=== PATIENT | male | born 1985 | race Caucasian/White ===

== ENCOUNTER 2020-03-07 11:16 | Emergency (ER) | payer SELFPAY ==
[~2020-03-07] VITALS: Ht 172.7 cm; Wt 70.9 kg
[2020-03-07 11:29] VITALS: BP 138/77
[2020-03-07] MEDS ORDERED: CIPR2.5D OS (12:33)
--- NOTE | 2020-03-07 12:33 | PHYS DOC ---
Past Medical History Past Medical History: No Pertinent History Past Surgical History: No Surgical History Smoking Status: Former Smoker Alcohol Use: None General Adult EDM: Chief Complaint: EYE PROBLEMS HPI: HPI: Patient is a 34 year old male who presents to the emergency department with complaints of left eye redness, pain, and tearing for the last 2 days. He states that he normally wears contact lenses but he is not been wearing them since the onset of the symptoms. He reports that his vision is blurry but denies any fever, headache, injury, neck pain, loss of vision, or floaters. He denies any recent skiing, welding, or photosensitivity. He currently rates the pain 8 out of 10 on the pain scale and describes it as a constant burning sensation. Review of Systems: Review of Systems: Complete review of systems is negative unless otherwise documented in the HPI Heart Score: Risk Factors: Risk Factors: DM, Current or recent (<one month) smoker, HTN, HLP, family history of CAD, obesity. Risk Scores: Score 0 - 3: 2.5% MACE over next 6 weeks - Discharge Home Score 4 - 6: 20.3% MACE over next 6 weeks - Admit for Clinical Observation Score 7 - 10: 72.7% MACE over next 6 weeks - Early Invasive Strategies Allergies: Allergies: Allergies Coded Allergies Type Severity Reaction Last Updated Verified No Known Drug Allergies 03/07/20 No Physical Exam: PE: Constitutional: Well developed, well nourished, no acute distress, non-toxic appearance. [] HENT: Normocephalic, atraumatic, bilateral external ears normal, nose normal. [] Eyes: PERRLA, EOMI, right eye conjunctiva normal, no discharge; left eye diffuse conjunctival erythema with watery discharge consistent with conjunctivitis, no visible foreign body [] Neck: Normal range of motion, no stridor. [] Cardiovascular:Heart rate regular rhythm Lungs & Thorax: Respirations even and unlabored, no retractions, no respiratory distress Skin: Warm, dry, no erythema, no rash. [] Extremities: No cyanosis, ROM intact, no edema. [] Neurologic: Alert and oriented X 3, no focal deficits noted. [] Psychologic: Affect normal, judgement normal, mood normal. [] Current Patient Data: Vital Signs: Vital Signs Date Time Temp Pulse Resp B/P (MAP) Pulse Ox O2 Delivery O2 Flow Rate FiO2 03/07/20 11:29 97.9 90 17 138/77 (97) 99 Room Air 97.9 EKG: EKG: [] Radiology/Procedures: Radiology/Procedures: [] Course & Med Decision Making: Course & Med Decision Making Pertinent Labs and Imaging studies reviewed. (See chart for details) [] Dragon Disclaimer: Dragon Disclaimer: This electronic medical record was generated, in whole or in part, using a voice recognition dictation system. Departure Departure Impression: Primary Impression: Acute conjunctivitis, left eye Qualified Codes: H10.32 - Unspecified acute conjunctivitis, left eye Additional Impression: Wears contact lenses Disposition: HOME, SELF-CARE Condition: STABLE Referrals: NO PCP (PCP) CUBA DE LUNA MD Patient Instructions: Conjunctivitis (Viral and Bacterial) Additional Instructions: Fill the prescription(s) and use as directed. Apply warm, moist washcloths to eyes needed for comfort. Recommend use of baby shampoo to wash eyelids. Do not wear your contacts until symptoms have completely resolved. Follow-up with your Dr. De Luna's office for reevaluation in 1-2 days. Return to the emergency room if your symptoms worsen. Scripts Ciprofloxacin Hcl (CIPROFLOXACIN HCL) 2.5 Ml Drops 1 DROP OS QID for 7 Days, #5 ML 0 Refills Prov: ALTHEA MARTINEZ APRN 03/07/20 Justicifation of Admission Dx: Justifications for Admission: Justification of Admission Dx: N/A ALTHEA MARTINEZ APRN Mar 07, 2020 12:33
== END 2020-03-07 12:38 | disposition home or self-care (01) ==
LOC: ER 11:16
DX: H10.32 Unspecified acute conjunctivitis, left eye (principal); Z87.891 Personal history of nicotine dependence
CPT/HCPCS: 99283